=== PATIENT | male | born 1940 | race African-American/Black ===

== ENCOUNTER 2017-05-27 10:59 | Inpatient (IN) | payer OTHER ==
[~2017-05-27] VITALS: Ht 185.4 cm; Wt 90.3 kg
[2017-05-27 13:33] LABS: BASOPHILS % 1.1 % (0.0-2.0); EOSINOPHILS % 0.1 % (0.0-5.0); LYMPHOCYTES % 12.4 % (20.0-50.0); MEAN CORPUSCULAR HEMOGLOBIN 25.9 pg (28.0-32.0); MEAN CORPUSCULAR VOLUME 79.9 fL (80.0-94.0); MEAN PLATELET VOLUME 7.2 fl (7.4-10.4); MONOCYTES % 9.2 % (2.0-8.0); NEUTROPHILS % 77.2 % (40.0-76.0); PLATELET 403 x1000/uL (130-400); RED BLOOD CELL COUNT 4.26 mill/uL (4.7-6.1); RED CELL DISTRIBUTION WIDTH 18.9 % (11.6-14.6)
[2017-05-27 13:47] LABS: CARBON DIOXIDE 29 mEq/L (21-32); CHLORIDE 106 mEq/L (98-107)
[2017-05-27] MEDS ORDERED: ADENOSINE 6 MG/2ML SYRINGE IV ONE (16:45)
[2017-05-27 20:00] VITALS: BP 163/82
[2017-05-27 20:15] VITALS: BP 163/82
[2017-05-27] MEDS ORDERED: [UNRECOGNIZED DRUG - OTHER] PO (20:43)
[2017-05-27] MEDS ORDERED: [UNRECOGNIZED DRUG - OTHER] PO (20:43)
[2017-05-27] MEDS ORDERED: [UNRECOGNIZED DRUG - OTHER] PO (20:43)
[2017-05-27] MEDS ORDERED: CLONIDINE 0.1MG TABLET PO PRN (22:45)
[2017-05-27] MEDS ORDERED: POTASSIUM CHLORIDE 20MEQ TABLET SR PO NR (22:45)
[2017-05-27] MEDS: METOPROLOL TARTRATE 50MG TABLET PO SCH (23:46)
[2017-05-28] VITALS: BP 134/77
[2017-05-28 04:00] VITALS: BP 135/81
[2017-05-28 07:38] LABS: TRIOIODOTHYRONINE TOTAL 0.61 ng/ml (0.60-1.81)
[2017-05-28 07:43] LABS: BASOPHILS % 1.3 % (0.0-2.0); EOSINOPHILS % 0.5 % (0.0-5.0); HEMATOCRIT. 33.3 % (42.0-52.0); HEMOGLOBIN. 10.7 g/dL (14.0-18.0); LYMPHOCYTES % 12.5 % (20.0-50.0); MEAN CORPUSCULAR HEMOGLOBIN 25.9 pg (28.0-32.0); MEAN CORPUSCULAR VOLUME 80.5 fL (80.0-94.0); MEAN PLATELET VOLUME 7.6 fl (7.4-10.4); MONOCYTES % 9.1 % (2.0-8.0); NEUTROPHILS % 76.6 % (40.0-76.0); PLATELET 386 x1000/uL (130-400); RED BLOOD CELL COUNT 4.13 mill/uL (4.7-6.1); RED CELL DISTRIBUTION WIDTH 19.5 % (11.6-14.6)
[2017-05-28 08:00] VITALS: BP 141/86
[2017-05-28 08:02] LABS: PROSTRATE SPECIFIC AG TOTAL 27.46 ng/mL (0.0-4.0)
[2017-05-28 08:31] LABS: CARBON DIOXIDE 27 mEq/L (21-32); CREATINE KINASE 92 IU/L (39-308); CREATINE KINASE MB FRACTION 1.4 ng/mL (0.5-3.6); HDL CHOLESTEROL 43 mg/dL (40-59); LDL CHOLESTEROL 96 mg/dL (5-100); T4 FREE 0.97 ng/dL (0.76-1.46); TROPONIN I < 0.02 ng/mL (0.00-0.04)
[2017-05-28 08:52] LABS: CHLORIDE 104 mEq/L (98-107)
[2017-05-28] MEDS: TAMSULOSIN HCL 0.4MG SR CAPSULE PO SCH ×2 (09:00→10:14)
[2017-05-28] MEDS: METOPROLOL TARTRATE 50MG TABLET PO SCH ×2 (09:11→21:19)
[2017-05-28] MEDS: ASPIRIN 325MG EC TABLET PO SCH (09:11)
[2017-05-28] MEDS: ENOXAPARIN 40MG/0.4ML SYR SUBCUT SCH (09:24)
[2017-05-28] MEDS: ACETAMINOPHEN 325MG TABLET PO PRN (09:26)
[2017-05-28 12:00] VITALS: BP 103/59
[2017-05-28] MEDS ORDERED: IOHEXOL-300 100 ML BOTTLE ONE (12:19)
[2017-05-28] MEDS ORDERED: SODIUM CHLORIDE 0.9% 10ML VIAL ONE (12:19)
[2017-05-28 16:00] VITALS: BP_SYST 103; BP_SYST 110; BP_DIAS 59; BP_DIAS 69
[2017-05-28 17:39] LABS: CREATINE KINASE 98 IU/L (39-308); CREATINE KINASE MB FRACTION 1.2 ng/mL (0.5-3.6); TROPONIN I < 0.02 ng/mL (0.00-0.04)
[2017-05-28 20:00] VITALS: BP 117/68
[2017-05-29] VITALS: BP 113/75
[2017-05-29 04:00] VITALS: BP 122/83
[2017-05-29 08:00] VITALS: BP 117/70
[2017-05-29] MEDS: ENOXAPARIN 40MG/0.4ML SYR SUBCUT SCH (09:00)
[2017-05-29] MEDS: ASPIRIN 325MG EC TABLET PO SCH (09:00)
[2017-05-29] MEDS: METOPROLOL TARTRATE 50MG TABLET PO SCH ×2 (09:40→21:24)
[2017-05-29] MEDS: TAMSULOSIN HCL 0.4MG SR CAPSULE PO SCH (09:40)
[2017-05-29 12:00] VITALS: BP 100/63
[2017-05-29 16:00] VITALS: BP 124/70
[2017-05-29 20:00] VITALS: BP 126/69
[2017-05-30] VITALS (7 sets, daily range): BP systolic 92–121; BP diastolic 55–79
[2017-05-30] MEDS: ASPIRIN 325MG EC TABLET PO SCH (08:00)
[2017-05-30] MEDS: ACETAMINOPHEN 325MG TABLET PO PRN ×2 (09:26→17:30)
[2017-05-30] MEDS: METOPROLOL TARTRATE 50MG TABLET PO SCH ×2 (09:27→20:42)
[2017-05-30] MEDS: TAMSULOSIN HCL 0.4MG SR CAPSULE PO SCH (09:27)
[2017-05-30] MEDS: ENOXAPARIN 40MG/0.4ML SYR SUBCUT SCH (09:27)
[2017-05-30 20:20] LABS: INR 1.1; PARTIAL THROMBOPLASTIN TIME 33.6 sec (23.4-31.0); PROTHROMBIN TIME 11.4 sec (9.4-11.6)
[2017-05-30 20:23] LABS: BASOPHILS % 0.5 % (0.0-2.0); EOSINOPHILS % 0.5 % (0.0-5.0); HEMATOCRIT. 31.6 % (42.0-52.0); HEMOGLOBIN. 10.1 g/dL (14.0-18.0); LYMPHOCYTES % 11.9 % (20.0-50.0); MEAN CORPUSCULAR HEMOGLOBIN 25.8 pg (28.0-32.0); MEAN CORPUSCULAR VOLUME 80.5 fL (80.0-94.0); MEAN PLATELET VOLUME 7.4 fl (7.4-10.4); MONOCYTES % 10.7 % (2.0-8.0); NEUTROPHILS % 76.4 % (40.0-76.0); PLATELET 351 x1000/uL (130-400); RED BLOOD CELL COUNT 3.93 mill/uL (4.7-6.1); RED CELL DISTRIBUTION WIDTH 18.7 % (11.6-14.6)
[2017-05-31] VITALS: BP 110/62
[2017-05-31 04:00] VITALS: BP 140/82
[2017-05-31] MEDS ORDERED: HYDROCODONE/ACETAMINOPHEN 5/325MG TABLET PO PRN (08:30)
[2017-05-31] MEDS: TAMSULOSIN HCL 0.4MG SR CAPSULE PO SCH (08:55)
[2017-05-31] MEDS: METOPROLOL TARTRATE 50MG TABLET PO SCH ×2 (08:56→22:48)
[2017-05-31] MEDS: ENOXAPARIN 40MG/0.4ML SYR SUBCUT SCH (08:57)
[2017-05-31 10:20] VITALS: BP 107/72
[2017-05-31 12:00] VITALS: BP 114/65
[2017-05-31] MEDS ORDERED: HYDROCODONE/APAP 7.5/325MG 1 TAB TABLET PO PRN (15:15)
[2017-05-31 16:00] VITALS: BP 107/54
[2017-05-31 20:00] VITALS: BP 121/74
[2017-05-31] MEDS: SULFAMETHOXAZOLE/TRIMETHOPRIM 800/160MG TABLET PO SCH (22:48)
[2017-06-01] VITALS: BP 108/60
[2017-06-01 04:00] VITALS: BP 106/53
[2017-06-01 08:00] VITALS: BP 122/68
[2017-06-01] MEDS: ENOXAPARIN 40MG/0.4ML SYR SUBCUT SCH ×2 (09:00→09:52)
[2017-06-01] MEDS: SULFAMETHOXAZOLE/TRIMETHOPRIM 800/160MG TABLET PO SCH (09:51)
[2017-06-01] MEDS: METOPROLOL TARTRATE 50MG TABLET PO SCH (09:51)
[2017-06-01] MEDS: TAMSULOSIN HCL 0.4MG SR CAPSULE PO SCH (09:52)
[2017-06-01 13:51] VITALS: BP 122/68
== END 2017-06-01 14:45 | DRG 478 ==
LOC: ER 10:59 → 7WST 17:21 → ENRESERV 18:02
PROVIDERS: ADMIT Internal Medicine; ATTEND Internal Medicine
PROC: 0QB23ZX Excision of Right Pelvic Bone, Percutaneous Approach, Diagnostic (ICD-10-PCS; principal; 2017-05-31)
DX: M48.06 Spinal stenosis, lumbar region (principal); I47.1 Supraventricular tachycardia; E44.0 Moderate protein-calorie malnutrition; M89.8X8 Other specified disorders of bone, other site; M51.36 Other intervertebral disc degeneration, lumbar region; G89.29 Other chronic pain; M79.604 Pain in right leg; R97.20 Elevated prostate specific antigen [PSA]; Z68.26 Body mass index [BMI] 26.0-26.9, adult; Z90.49 Acquired absence of other specified parts of digestive tract
CPT/HCPCS: 36415; 71010; 71250; 71260; 72100; 72148; 73502; 73562; 74177; 77012; 80048; 80053; 80061; 82550; 82553; 82962; 84153; 84439; 84443; 84480; 84484; 85025; 85610; 85730; 88305; 93005; 93306; 97116; 97162; 97530; 97535; 99285; A4216; C1893; J0153; J1650; Q9967